=== PATIENT | female | born 1980 | race Caucasian/White ===

== ENCOUNTER 2016-10-12 20:23 | Emergency (ER) | payer MEDICAID ==
--- NOTE | 2016-10-12 20:24 | ED Physician Chart ---
Chief Complaint/HPI - Patient Information Date Seen:: 10/12/16 Time Seen:: 20:24 Chief Complaint:: chest pain History of Present Illness:: 35-year-old female, who is healthy, complains of acute, severe, 10 out of 10, aching, intermittent, occurs and becomes worse with eating, radiating to the right scapula, right sided chest pain as 2 days. Also has a second complaint of acute, constant, moderate, aching, left ear pain 3 days. Denies nausea, vomiting, diaphoresis, headache, acute vision changes, palpitations, gross blood in stool, gross hematuria, numbness or tingling of extremities, dysuria. Allergies:: Allergies Allergy/AdvReac Type Severity Reaction Status Date / Time MDX No Known Allergies - Nka Allergy Verified 09/20/15 20:32 Historian:: Patient Review:: Nurse's Note Reviewed Review of Systems - Review of Systems Other: Complete system review otherwise unremarkable except as noted in history of present illness. Past Medical History - Past Medical History Past Medical History: No significant medical hx Family History: None Social History: Non Smoker, No Alcohol, No Drug Use, Employed Surgical History: Psychiatricy History: None Medication: None Family Medical History - Family Member Mother History Unknown: Yes Ethnicity: Physical Exam - Physical Examination Other:: INITIAL VITAL SIGNS: Reviewed by me GENERAL: Alert and interactive. No acute distress HEAD: Head is normocephalic and atraumatic EYES: EOMI. PERRL. No scleral icterus. No conjunctival injection ENT: Moist mucous membranes. Left ear canal is erythematous there is purulent discharge which is obscuring a full view of the TM. Visible TM appears within normal limits. NECK: Supple. No masses. Full range of motion RESPIRATORY: No tachypnea. Clear breath sounds bilaterally. No wheezing, rales, or rhonchi CV: Regular rate and rhythm. No murmurs, rubs, or gallops ABDOMEN: Soft, non-distended, non-tender. No guarding. No rebound. No masses. EXTREMITIES: No deformity. No cyanosis. No edema. SKIN: Warm and dry. No obvious rashes. NEUROLOGIC: Alert and oriented. Face is symmetric. Speech is normal. Moves all extremities equally. Motor and sensory distally intact. Labs/Radiology/EKG Results - Lab Results Results: Lab Results 10/12/16 10/12/16 10/12/16 Range/Units 20:38 20:38 20:38 WBC 7.3 (4.8-10.8) Th/cmm RBC 4.56 (3.80-5.10) Mil/cmm Hgb 12.9 (11.7-15.5) gm/dL Hct 38.0 (35.0-45.0) % MCV 83.3 (81-100) fl MCH 28.3 (27.0-31.0) pg MCHC Differential 33.9 (28.0-36.0) pg RDW 13.1 (11.5-20.0) % Plt Count 241 (150-400) Th/cmm MPV 8.8 fl Neutrophils % 59.5 (40.0-80.0) % Lymphocytes % 32.6 (20.0-50.0) % Monocytes % 5.0 (2.0-10.0) % Eosinophils % 2.7 (0.0-5.0) % Basophils % 0.2 (0.0-2.0) % PT 9.2 L (9.5-11.5) SECONDS INR 0.89 (0.5-1.4) Sodium 137 (136-145) mEq/L Potassium 3.4 L (3.5-5.1) mEq/L Chloride 108 H (98-107) mEq/L Carbon Dioxide 23.8 (21.0-31.0) mEq/L Anion Gap 8.6 (7.0-16.0) BUN 16 (7-25) mg/dL Creatinine 0.7 (0.6-1.2) mg/dL Est GFR ( Amer) > 60.0 (>90) ml/min Est GFR (Non-Af Amer) > 60.0 ml/min BUN/Creatinine Ratio 22.9 Glucose 106 H (70-105) mg/dL Calcium 9.0 (8.6-10.3) mg/dL Total Bilirubin 0.4 (0.3-1.0) mg/dL AST 20 (13-39) U/L ALT 26 (7-52) U/L Alkaline Phosphatase 77 (34-104) U/L Troponin I (0.01-0.05) ng/mL B-Natriuretic Peptide (5.0-100.0) pg/mL Total Protein 7.5 (6.0-8.3) gm/dL Albumin 4.0 (3.7-5.3) gm/dL Globulin 3.5 gm/dL Albumin/Globulin Ratio 1.1 (1.0-1.8) Serum , Qual (NEGATIVE) 10/12/16 10/12/16 Range/Units 20:38 20:38 WBC (4.8-10.8) Th/cmm RBC (3.80-5.10) Mil/cmm Hgb (11.7-15.5) gm/dL Hct (35.0-45.0) % MCV (81-100) fl MCH (27.0-31.0) pg MCHC Differential (28.0-36.0) pg RDW (11.5-20.0) % Plt Count (150-400) Th/cmm MPV fl Neutrophils % (40.0-80.0) % Lymphocytes % (20.0-50.0) % Monocytes % (2.0-10.0) % Eosinophils % (0.0-5.0) % Basophils % (0.0-2.0) % PT (9.5-11.5) SECONDS INR (0.5-1.4) Sodium (136-145) mEq/L Potassium (3.5-5.1) mEq/L Chloride (98-107) mEq/L Carbon Dioxide (21.0-31.0) mEq/L Anion Gap (7.0-16.0) BUN (7-25) mg/dL Creatinine (0.6-1.2) mg/dL Est GFR ( Amer) (>90) ml/min Est GFR (Non-Af Amer) ml/min BUN/Creatinine Ratio Glucose (70-105) mg/dL Calcium (8.6-10.3) mg/dL Total Bilirubin (0.3-1.0) mg/dL AST (13-39) U/L ALT (7-52) U/L Alkaline Phosphatase (34-104) U/L Troponin I 0.01 (0.01-0.05) ng/mL B-Natriuretic Peptide 12.6 (5.0-100.0) pg/mL Total Protein (6.0-8.3) gm/dL Albumin (3.7-5.3) gm/dL Globulin gm/dL Albumin/Globulin Ratio (1.0-1.8) Serum , Qual NEGATIVE (NEGATIVE) - Radiology Results Results: Single AP VIEW Portable Chest X-ray was interpreted independently and contemporaneously by Rafal Valdez MD: No cardiomegaly Normal mediastinum No lung infiltrates No pneumothorax No soft tissue or bony abnormalities - EKG Interpretations Comments:: 12-lead EKG Interpretation by Rafal Valdez MD: Normal Sinus Rhythm with ventricular rate of 61 beats per minute Normal axis Normal intervals No acute ST or T wave changes. No obvious STEMI ED Septic Shock - . Is Septic Shock (SBP<90, OR Lactate>4 mmol\L) present?: No Reassessment (Disposition) - Reassessment Reassessment:: Procedure female otherwise healthy, sensory with right sided chest pain that was worse after eating. Radiated to her scapula. Likely biliary colic. However no transaminitis or obstructive pattern on the labs. No Liao's sign on exam. Pepcid 20 days prescription. Also has left ear pain. She says she was swimming about 45 days ago. Has otitis media on exam on the left. We'll prescribe ciprofloxacin/hydrocortisone otic drops. Recommend follow-up PCP 1-2 days. Return precautions given. Patient says she understands and agrees the plan. Blood pressure was noted to be elevated over 120/80. There were no signs of hypertension. Discussed the findings with the patient and recommended that the patient follow up with the primary care physician regarding the elevated blood pressure. Reassessment Condition:: Improved - Diagnosis Diagnosis:: Acute left ear pain due to acute left otitis externa Acute right sided chest pain due to possible biliary colic Elevated blood pressure without the diagnosis of hypertension - Aftercare/Follow up Instructions Aftercare/Follow-Up Instructions:: Counseled pt regarding lab results/diagnosis & need follow up, Refer to Discharge Instructions Medication Prescribed:: Pepcid Ciprofloxacin/hydrocortisone otic solution - Patient Disposition Discharge/Transfer:: Home Time:: 21:43 Condition at Disposition:: Improved ED Discharge Plan - Patient Disposition Admit/Discharge/Transfer: PT DISCHARGED HOME Condition at Disposition: Improved Prescriptions: Ciprofloxacin/Hydrocortisone [Cipro Hc Otic Suspension] 10 ml OT Q12HR 7 Days Famotidine [Pepcid] 40 mg PO DAILY 20 Days Instructions: Otitis Externa, [id number], Chest Pain Observation Additional Instructions: FOLLOW UP WITH YOUR DOCTOR IN 2- 3 DAYS AND TO COME BACK TO ER IF SYMPTOMS WORSEN. TAKE YOUR MEDICATIONS PRESCRIBED
[2016-10-12 20:48] LABS: % BASOPHILS 0.2 % (0.0-2.0); % EOSINOPHILS 2.7 % (0.0-5.0); % LYMPHOCYTES 32.6 % (20.0-50.0); % NEUTROPHILS 59.5 % (40.0-80.0); HEMOGLOBIN 12.9 gm/dL (11.7-15.5); MEAN CELL VOLUME 83.3 fl (81-100); MEAN CORPUSCULAR HEMOGLOBIN 28.3 pg (27.0-31.0); MEAN CORPUSCULAR HGB CONC 33.9 pg (28.0-36.0); MEAN PLATELET VOLUME 8.8 fl; NEUTROPHILE ABSOLUTE 4.3 Th/cmm (1.8-8.0); PLATELET COUNT 241 Th/cmm (150-400); RED BLOOD COUNT 4.56 Mil/cmm (3.80-5.10); RED CELL DISTRIBUTION WIDTH 13.1 % (11.5-20.0); WHITE BLOOD COUNT 7.3 Th/cmm (4.8-10.8)
[2016-10-12 21:00] LABS: INR 0.89 (0.5-1.4); PROTHROMBIN TIME (TEST) 9.2 SECONDS (9.5-11.5)
[2016-10-12 21:03] LABS: ALB/GLOB RATIO 1.1 (1.0-1.8); ALKALINE PHOSPHATASE 77 U/L (34-104); ANION GAP 8.6 (7.0-16.0); BILIRUBIN,TOTAL 0.4 mg/dL (0.3-1.0); BUN - UREA NITROGEN 16 mg/dL (7-25); BUN/CREATININE RATIO 22.9; CARBON DIOXIDE 23.8 mEq/L (21.0-31.0); CHLORIDE 108 mEq/L (98-107); CREATININE - SERUM 0.7 mg/dL (0.6-1.2); GLUCOSE 106 mg/dL (70-105); POTASSIUM SERUM 3.4 mEq/L (3.5-5.1); SGOT 20 U/L (13-39); SGPT/ALT 26 U/L (7-52); SODIUM SERUM 137 mEq/L (136-145)
[2016-10-12 21:04] LABS: TROP I 0.01 ng/mL (0.01-0.05)
[2016-10-12 21:08] LABS: BNP 12.6 pg/mL (5.0-100.0)
--- NOTE | 2016-10-13 11:47 | Diagnostic Imaging Report ---
Portable chest x-ray History: Pain Allowing for portable technique the heart size is normal. No focal pulmonary parenchymal processes. No hilar or mediastinal abnormalities. Impression: No acute abnormalities.
== END 2016-10-12 22:00 | disposition home or self-care (01) ==
LOC: ER 20:23
DX: H60.92 Unspecified otitis externa, left ear (principal); R07.89 Other chest pain; R03.0 Elevated blood-pressure reading, without diagnosis of hypertension
CPT/HCPCS: 99285; 96372; 93005; 71010; 84484; 83880; 36415; 85025; 85610; 84703; 80053; J1885

== ENCOUNTER 2018-04-06 17:04 | Inpatient (IN) | payer MEDICAID ==
[2018-04-06] MEDS ORDERED: Sodium Chloride 0.9% 1,000 ML IV ONE (17:57)
--- NOTE | 2018-04-06 18:03 | ED Physician Chart ---
ED Chief Complaint/HPI - Patient Information Date Seen:: 04/06/18 Time Seen:: 17:00 Chief Complaint:: Abdominal Pain History of Present Illness:: onset x 12 hours of intermittent, diffuse, crampy abdominal pain; pt denies trauma, LOC, ALOC, AMS, H/As, S/T, neck pain, cough, C/P, SOB, A/N/V/D/C, fever , chills, VB, VD, bleeding, or urinary s/s Allergies:: Allergies Allergy/AdvReac Type Severity Reaction Status Date / Time No Known Allergies Allergy Verified 10/12/16 20:29 Historian:: Patient, Family Member Review:: Nurse's Note Reviewed ED Review of Systems - Review of Systems General/Constitutional: No fever, No chills, No weight loss, No weakness, No diaphoresis, No edema, No loss of appetite Skin: No skin lesions, No rash, No bruising Head: No headache, No light-headedness Eyes: No loss of vision, No pain, No diplopia ENT: No earache, No nasal drainage, No sore throat, No tinnitus Neck: No neck pain, No swelling, No thyromegaly, No stiffness, No mass noted Cardio Vascular: No chest pain, No palpitations, No PND, No orthopnea, No edema Pulmonary: No SOB, No cough, No sputum, No wheezing GI: Nausea, Vomiting, Diarrhea, Pain, No melena, No hematochezia, No constipation, No hematemesis G/U: No dysuria, No frequency, No hematuria [employer]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, No abnormal vaginal bleed, No contraction Musculoskeletal: No bone or joint pain, No back pain, No muscle pain Endocrine: No polyuria, No polydipsia Psychiatric: No prior psych history, No depression, No anxiety, No suicidal ideation, No homicidal ideation, No auditory hallucination, No visual hallucination Hematopoietic: No bruising, No lymphadenopathy Allergic/Immuno: No urticaria, No angioedema Neurological: No syncope, No focal symptoms, No weakness, No paresthesia, No headache, No seizure, No dizziness, No confusion, No vertigo ED Past Medical History - Past Medical History Obtainable: Yes Past Medical History: No significant medical hx Family History: None Social History: Non Smoker, No Alcohol, No Drug Use, Surgical History: None Psychiatricy History: None Medication: Reviewed Family Medical History - Family Member Mother History Unknown: Yes Ethnicity: ED Physical Exam - Physical Examination General/Constitutional: Awake, Well-developed, well-nourished, Alert, No distress, GCS 15, Non-toxic appearing, Ambulatory Head: Atraumatic Eyes: Lids, conjuctiva normal, PERRL, EOMI Skin: Nl inspection, No rash, No skin lesions, No ecchymosis, Well hydrated, No lymphadenopathy ENMT: External ears, nose nl, TM canals nl, Nasal exam nl, Lips, teeth, gums nl , Oropharynx nl, Tonsils nl Neck: Nontender, Full ROM w/o pain, No JVD, No nuchal rigidity, No bruit, No mass, No stridor Respiratory: Nl effort/Exclusion, Clear to Auscultation, No Wheeze/Rhonchi/Rales Cardio Vascular: RRR, No murmur, gallop, rubs, NL S1 S2, Carotid/Femoral/Distal pulses equal bilaterally GI: No organomegaly, No hernia, Normal BS's, Nondistended, No mass/bruits, No McBurney tenderness, Rectum exam nl Other GI comments:: + RLQ Tenderness with rebound and guarding : No CVA tenderness Extremities: No tenderness or effusion, Full ROM, normal strength in all extremities, No edema, Normal digits & nails Neuro/Psych: Alert/oriented, DTR's symmetric, Normal sensory exam, Normal motor strength, Judgement/insight normal, Mood normal, Normal gait, No focal deficits Misc: Normal back, No paraspinal tenderness ED Labs/Radiology/EKG Results - Lab Results Comments:: Reviewed - Radiology Results Comments:: NAD - EKG Interpretations EKG Time:: 19:00 Rate & Rhythm: 74; NSR Comments:: non-specific st-t changes ED Septic Shock - . Is Septic Shock (SBP<90, OR Lactate>4 mmol\L) present?: No ED Reassessment (Disposition) - Reassessment Reassessment Condition:: Improved - Diagnosis Diagnosis:: Abdominal Pain; UTI - Aftercare/Follow up Instructions Aftercare/Follow-Up Instructions:: Counseled pt regarding lab results/diagnosis & need follow up, Counseled pt & family regarding lab results/diagnosis & need follow up - Patient Disposition Discharge/Transfer:: Acute Care w/in this hosp Accepting Physician:: Dr. Pelaez Time Called:: 2199 Time Responded:: 22:00 Admitted to:: Telemetry Spoke to:: Dr. Pelaez Admitting Medical Physician:: Dr. Pelaez Condition at Disposition:: Stable, Improved
[2018-04-06 18:35] LABS: % BASOPHILS 0.4 % (0.0-2.0); % EOSINOPHILS 4.1 % (0.0-5.0); % LYMPHOCYTES 29.4 % (20.0-50.0); % MONOCYTES 2.9 % (2.0-10.0); % NEUTROPHILS 63.2 % (40.0-80.0); EOSINOPHILE ABSOLUTE 0.4 Th/cmm (0.1-0.4); HEMATOCRIT 41.9 % (41.0-60); HEMOGLOBIN 14.1 gm/dL (12-16); LYMPHOCYTE ABSOLUTE 2.6 Th/cmm (1.5-3.0); MEAN CELL VOLUME 84.5 fl (81-100); MEAN CORPUSCULAR HEMOGLOBIN 28.3 pg (27.0-31.0); MEAN CORPUSCULAR HGB CONC 33.5 pg (28.0-36.0); MEAN PLATELET VOLUME 8.6 fl; MONOCYTE ABSOLUTE 0.3 Th/cmm (0.3-1.0); NEUTROPHILE ABSOLUTE 5.5 Th/cmm (1.8-8.0); PLATELET COUNT 307 Th/cmm (150-400); RED BLOOD COUNT 4.96 Mil/cmm (3.80-5.10); RED CELL DISTRIBUTION WIDTH 13.3 % (11.5-20.0); WHITE BLOOD COUNT 8.8 Th/cmm (4.8-10.8)
[2018-04-06 18:46] LABS: INR 0.92 (0.5-1.4); PROTHROMBIN TIME (TEST) 9.6 SECONDS (9.5-11.5)
[2018-04-06 18:50] LABS: ALB/GLOB RATIO 1.3 (1.0-1.8); ALBUMIN 4.2 gm/dL (3.7-5.3); ALKALINE PHOSPHATASE 91 U/L (34-104); BILIRUBIN,TOTAL 0.5 mg/dL (0.3-1.0); BUN - UREA NITROGEN 12 mg/dL (7-25); CALCIUM SERUM 9.6 mg/dL (8.6-10.3); CARBON DIOXIDE 23.7 mEq/L (21.0-31.0); CHLORIDE 105 mEq/L (98-107); CHOLESTEROL 178 mg/dL (<200); CREATININE - SERUM 0.5 mg/dL (0.6-1.2); CREATININE KINASE 93 U/L (30-223); GFR AFRICAN-AMERICAN > 60.0 ml/min (>90); GFR NON AFRICAN-AMERICAN > 60.0 ml/min; GLUCOSE 106 mg/dL (70-105); HDL -HIGH DENSITY LIPOPROTEIN 30 mg/dL (23-92); POTASSIUM SERUM 3.7 mEq/L (3.5-5.1); SGOT 79 U/L (13-39); SGPT/ALT 105 U/L (7-52); SODIUM SERUM 138 mEq/L (136-145); TOTAL PROTEIN,SERUM 7.5 gm/dL (6.0-8.3); TRIGLYCERIDES 219 mg/dL (<150)
[2018-04-06 18:53] LABS: AMYLASE SERUM 45 U/L (29-103); LIPASE 44 U/L (11-82)
[2018-04-06 18:53] LABS: URINE SOURCE RANDOM
[2018-04-06 18:58] LABS: URINE BILIRUBIN NEGATIVE (NEGATIVE); URINE BLOOD NEGATIVE (NEGATIVE); URINE GLUCOSE (UA) NEGATIVE (NEGATIVE); URINE KETONE NEGATIVE (NEGATIVE); URINE LEUKOCYTE ESTERASE NEGATIVE (NEGATIVE); URINE MICROSCOPIC INDICATED? YES; URINE NITRATE NEGATIVE (NEGATIVE); URINE PROTEIN TRACE mg/dL (NEGATIVE); URINE UROBILINOGEN 0.2 E.U./dL (0.2 - 1.0)
[2018-04-06 18:59] LABS: URINE CLARITY CLEAR (CLEAR); URINE COLOR YELLOW
[2018-04-06 19:01] LABS: URINE BACTERIA 1+ /hpf (NONE SEEN); URINE EPITHELIAL CELLS FEW /lpf (FEW); URINE RBC 0-2 /hpf (0-5)
[2018-04-06] MEDS ORDERED: cefTRIAXone 1 GM in Sodium Chloride 0.9% 50 ML IV ONE (20:29)
[2018-04-07] MEDS: D5-0.45NS 1,000 ML IV SCH ×3 (00:15→22:30)
[2018-04-07] MEDS: Morphine Sulfate 2 mg/mL 1mL Syr IV PRN ×3 (00:15→12:07)
[2018-04-07] MEDS ORDERED: Piperacillin Sodium/Tazobact 3.375 gm Vial IV ONE ×2 (00:19→05:27)
[2018-04-07 01:25] VITALS: BP 124/61
[2018-04-07] MEDS ORDERED: Influenza Vaccine (5 yr & older) 0.5 ml Syr IM ONE (01:44)
--- NOTE | 2018-04-07 09:26 | General Progress Note ---
Subjective - Review of Systems Service Date: 04/07/18 Events since last encounter: consult dictated minimal pain RLQ US of pelvis and repeat labs ordered Objective - Results Result Diagrams: 04/06/18 18:20 04/06/18 18:20 Recent Labs: Laboratory Last Values WBC 8.8 Th/cmm (4.8-10.8) 04/06/18 18:20 RBC 4.96 Mil/cmm (3.80-5.10) 04/06/18 18:20 Hgb 14.1 gm/dL (12-16) 04/06/18 18:20 Hct 41.9 % (41.0-60) 04/06/18 18:20 MCV 84.5 fl (81-100) 04/06/18 18:20 MCH 28.3 pg (27.0-31.0) 04/06/18 18:20 MCHC Differential 33.5 pg (28.0-36.0) 04/06/18 18:20 RDW 13.3 % (11.5-20.0) 04/06/18 18:20 Plt Count 307 Th/cmm (150-400) 04/06/18 18:20 MPV 8.6 fl 04/06/18 18:20 Neutrophils % 63.2 % (40.0-80.0) 04/06/18 18:20 Lymphocytes % 29.4 % (20.0-50.0) 04/06/18 18:20 Monocytes % 2.9 % (2.0-10.0) 04/06/18 18:20 Eosinophils % 4.1 % (0.0-5.0) 04/06/18 18:20 Basophils % 0.4 % (0.0-2.0) 04/06/18 18:20 PT 9.6 SECONDS (9.5-11.5) 04/06/18 18:20 INR 0.92 (0.5-1.4) 04/06/18 18:20 Sodium 138 mEq/L (136-145) 04/06/18 18:20 Potassium 3.7 mEq/L (3.5-5.1) 04/06/18 18:20 Chloride 105 mEq/L (98-107) 04/06/18 18:20 Carbon Dioxide 23.7 mEq/L (21.0-31.0) 04/06/18 18:20 Anion Gap 13.0 (7.0-16.0) 04/06/18 18:20 BUN 12 mg/dL (7-25) 04/06/18 18:20 Creatinine 0.5 mg/dL (0.6-1.2) L 04/06/18 18:20 Est GFR ( Amer) > 60.0 ml/min (>90) 04/06/18 18:20 Est GFR (Non-Af Amer) > 60.0 ml/min 04/06/18 18:20 BUN/Creatinine Ratio 24.0 04/06/18 18:20 Glucose 106 mg/dL (70-105) H 04/06/18 18:20 Calcium 9.6 mg/dL (8.6-10.3) 04/06/18 18:20 Total Bilirubin 0.5 mg/dL (0.3-1.0) 04/06/18 18:20 AST 79 U/L (13-39) H 04/06/18 18:20 ALT 105 U/L (7-52) H 04/06/18 18:20 Alkaline Phosphatase 91 U/L (34-104) 04/06/18 18:20 Creatine Kinase 93 U/L (30-223) 04/06/18 18:20 Troponin I < 0.01 ng/mL (0.01-0.05) L 04/06/18 18:20 B-Natriuretic Peptide < 5.0 pg/mL (5.0-100.0) L 04/06/18 18:20 Total Protein 7.5 gm/dL (6.0-8.3) 04/06/18 18:20 Albumin 4.2 gm/dL (3.7-5.3) 04/06/18 18:20 Globulin 3.3 gm/dL 04/06/18 18:20 Albumin/Globulin Ratio 1.3 (1.0-1.8) 04/06/18 18:20 Triglycerides 219 mg/dL (<150) H 04/06/18 18:20 Cholesterol 178 mg/dL (<200) 04/06/18 18:20 LDL Cholesterol Direct 132 mg/dL (75-193) 04/06/18 18:20 HDL Cholesterol 30 mg/dL (23-92) 04/06/18 18:20 Amylase 45 U/L (29-103) 04/06/18 18:20 Lipase 44 U/L (11-82) 04/06/18 18:20 Serum , Qual NEGATIVE (NEGATIVE) 04/06/18 18:20 Urine Source RANDOM 04/06/18 17:53 Urine Color YELLOW 04/06/18 17:53 Urine Clarity CLEAR (CLEAR) 04/06/18 17:53 Urine pH 7.0 (4.6 - 8.0) 04/06/18 17:53 Ur Specific [place] 1.020 (1.005-1.030) 04/06/18 17:53 Urine Protein TRACE mg/dL (NEGATIVE) 04/06/18 17:53 Urine Glucose (UA) NEGATIVE mg/dL (NEGATIVE) 04/06/18 17:53 Urine Ketones NEGATIVE mg/dL (NEGATIVE) 04/06/18 17:53 Urine Blood NEGATIVE (NEGATIVE) 04/06/18 17:53 Urine Nitrate NEGATIVE (NEGATIVE) 04/06/18 17:53 Urine Bilirubin NEGATIVE (NEGATIVE) 04/06/18 17:53 Urine Urobilinogen 0.2 E.U./dL (0.2 - 1.0) 04/06/18 17:53 Ur Leukocyte Esterase NEGATIVE (NEGATIVE) 04/06/18 17:53 Urine RBC 0-2 /hpf (0-5) 04/06/18 17:53 Urine WBC 2-5 /hpf (0-5) 04/06/18 17:53 Ur Epithelial Cells FEW /lpf (FEW) 04/06/18 17:53 Urine Bacteria 1+ /hpf (NONE SEEN) H 04/06/18 17:53 - Physical Exam Vitals and I&O: Vital Signs Temp 97.3 F 04/07/18 08:29 Pulse 64 04/07/18 08:29 Resp 18 04/07/18 08:29 BP 111/56 04/07/18 08:29 Pulse Ox 96 04/07/18 08:29 Intake & Output 04/06/18 04/07/18 04/07/18 18:59 06:59 18:59 Intake Total 50 Balance 50 Weight (lbs) 99.79 kg 107.365 kg Intake: Intake, IV Amount 50 Piperacillin Sodium/ 50 Tazobact 3.375 gm In Sodium Chloride 0.9% 50 ml @ 100 mls/hr IV Q6HR [facility] Rx#:[id number] Oral 0 Other: # Voids 1 # Bowel Movements 0 Weight Source Patient stated Bedscale Active Medications: Current Medications Dextrose/Sodium Chloride (D5-0.45ns) 1,000 mls @ 100 mls/hr IV .Q10H [facility] Stop: 06/05/18 22:37 Last Admin: 04/07/18 00:15 Dose: 100 mls/hr Piperacillin Sod/Tazobactam (Sod 3.375 gm/ Sodium Chloride) 50 mls @ 100 mls/ hr IV Q6HR [facility] Stop: 06/06/18 00:00 Last Admin: 04/07/18 05:57 Dose: 100 mls/hr Morphine Sulfate (Morphine) 2 mg IV Q4HR PRN PRN Reason: Abdominal Pain Stop: 06/05/18 23:57 Last Admin: 04/07/18 06:02 Dose: 2 mg - Procedures Procedures: Procedures Procedure Code Date BILAT TUBAL DIVISION NEC 66.32 09/22/06 DELIVERY 59534 03/25/04 DELIVERY ONLY 34582 09/22/06 DX PROC FETUS/AMNION NEC 75.35 02/17/04 DX ULTRASOUND-GRAV UTER 88.78 03/24/04 MONITORING NOS 75.34 09/13/06 NON-STRESS TEST 52593 09/13/06 LIGATE OVIDUCT(S) ADD-ON 58420 09/22/06 LOW CERVICAL 74.1 09/22/06 MATERNITY CARE PROCEDURE 68341 03/21/04 MEDICAL INDUCTION LABOR 73.4 03/25/04 OB US LIMITED FETUS(S) 53870 03/24/04
--- NOTE | 2018-04-07 09:39 | Diagnostic Imaging Report ---
CT abdomen and pelvis without intravenous contrast Indication: Abdominal pain Comparison: None, Technique: Axial images were obtained from the lung bases to the bilateral proximal femurs without IV contrast. Coronal reconstructions were made. total DLP: 751, CTDI14.3 FINDINGS: Hypoventilatory and atelectatic changes of the lung bases are noted. There is also view nodular densities of the right lower lobe 5 mm (image 10, series 5). Assessment of the solid organs is limited due to lack of IV contrast. Small hiatal hernia is noted. There is fatty infiltration of the liver. No focal hepatic, splenic, pancreatic, or adrenal lesions. No evidence of hydronephrosis or nephrolithiasis. Moderate amount of stool is noted within the colon. Fluid-filled appendix is noted without evidence of surrounding inflammatory changes. No evidence of free abdominal fluid or free the osseous structures demonstrate no acute abnormalities. IMPRESSION: Fluid-filled appendix. No evidence of surrounding inflammatory changes to suggest acute process of the spine. No evidence of small bowel obstruction. Moderate stool throughout the colon. Few small right basal nodules measuring up to 5 mm. Findings are nonspecific and may be due to infectious or inflammatory process. Correlation with old exams would be helpful for comparison. Short-term Follow-up surveillance CT examination in 6 months is recommended/monitoring.
--- NOTE | 2018-04-07 09:43 | Consultation ---
DATE OF CONSULTATION: 04/07/2018 REFERRING PHYSICIAN: Dr. Pelaez. REASON FOR CONSULTATION: Abdominal pain. Thank you for referring this patient to me. HISTORY OF PRESENT ILLNESS: This is a 37-year-old female who went to the Emergency Room because of abdominal pain for one day. Pain is mostly in the right lower quadrant. Denied any fever or chills or diarrhea, did have nausea, but no vomiting. LABORATORY STUDIES: Showed WBC is normal, rest of the CBC also. The chemistry: Slight elevation of AST and ALT. Triglycerides high at 219. She underwent a CT scan of the abdomen, which showed a fluid-filled appendix. No evidence of appendicitis; however. Past history is unremarkable except that she had two section. Otherwise, she does not take any medication on a regular basis. PHYSICAL EXAMINATION: The patient is obese. She is tender in the right lower quadrant on pushing in, but not any worse on sudden release of pressure. IMPRESSION: Possible early appendicitis. PLAN: We will order ultrasound of the pelvis and repeat lab test. test is negative. JOB# [id number]
[2018-04-07 11:19] LABS: % BASOPHILS 0.3 % (0.0-2.0); % MONOCYTES 4.2 % (2.0-10.0); % NEUTROPHILS 52.5 % (40.0-80.0); EOSINOPHILE ABSOLUTE 0.3 Th/cmm (0.1-0.4); HEMATOCRIT 39.9 % (41.0-60); HEMOGLOBIN 13.6 gm/dL (12-16); LYMPHOCYTE ABSOLUTE 3.1 Th/cmm (1.5-3.0); MEAN CELL VOLUME 84.1 fl (81-100); MEAN CORPUSCULAR HEMOGLOBIN 28.6 pg (27.0-31.0); MEAN CORPUSCULAR HGB CONC 34.1 pg (28.0-36.0); MEAN PLATELET VOLUME 8.3 fl; MONOCYTE ABSOLUTE 0.3 Th/cmm (0.3-1.0); NEUTROPHILE ABSOLUTE 4.3 Th/cmm (1.8-8.0); PLATELET COUNT 300 Th/cmm (150-400); RED BLOOD COUNT 4.75 Mil/cmm (3.80-5.10); RED CELL DISTRIBUTION WIDTH 13.6 % (11.5-20.0)
--- NOTE | 2018-04-07 11:19 | History & Physical ---
ADMIT DATE: 04/06/2018 MEDICAL H AND P PATIENT'S IDENTIFICATION: A 37-year-old female. CHIEF COMPLAINT: Right-sided abdominal pain. HISTORY OF PRESENT ILLNESS: A 37-year-old [place] female who speaks Ukrainian only, presented to Emergency Room for acute onset of right lower quadrant abdominal pain, which started on its own and pain was severe. She did take some ibuprofen with no improvement. She did have associated nausea and vomiting. The patient presented to Emergency Room. The patient was seen by Emergency Room MD, noted to have fluid filled appendix on CT scan of the abdomen and pelvis. The patient was advised to be admitted in the hospital for further treatment. PAST MEDICAL HISTORY: Negative. MEDICATIONS AT HOME: None. ALLERGIES: None. SOCIAL HISTORY: She is unemployed, lives with the family. She has no history of smoking cigarette, alcohol, or drug use. FAMILY MEDICAL HISTORY: Negative for diabetes, hypertension, kidney disease. MENSTRUAL AND GYNECOLOGIC HISTORY: She has two children. Her periods are regular. She denies any vaginal bleeding or vaginal discharge. REVIEW OF SYSTEMS: The patient denies any headache, blurred vision, double vision, dysphagia, odynophagia, runny nose, stuffy nose, fever, chills, cough, chest pain, shortness of breath, palpitation or dizziness. No history of any hematemesis. No history of any hematochezia. No history of any melena. No history of any hematuria. Denies any dysuria or polyuria. PHYSICAL EXAMINATION: GENERAL: The patient is alert, awake, oriented, lying in the bed with mild distress. VITAL SIGNS: Temperature 96.7, pulse 62, respiratory rate 18, blood pressure 116/58. SKIN: Warm to touch. HEENT: Normocephalic, atraumatic. Extraocular muscles intact. Tongue was pink and coated. Poor dentition noted. No oral lesion, no exudate. No sinus tenderness. NECK: Supple, no JVD. No hepatojugular reflex. No lymphadenopathy, thyromegaly or carotid bruit. HEART: Both heart sounds are regular. No S3, no S4, no murmur. CHEST AND LUNGS: Equal in expansion. No expiratory wheezing. ABDOMEN: Soft. Mild right lower quadrant tenderness noted, but no guarding, no rigidity. Bowel sounds are present. No pelvic mass. EXTREMITIES: No edema, no cyanosis or clubbing. Pulses are +2. No calf tenderness. NEUROLOGIC: Nonfocal. AVAILABLE DIAGNOSTIC DATA: AST and ALT 79 and 105, glucose of 106, creatinine 0.5. CBC within normal limit. Electrolytes are normal. Amylase and lipase are normal. Urinalysis is negative. CLINICAL IMPRESSION: 1. Acute onset of right lower quadrant pain. CT scan revealed fluid filled appendix and has a slightly elevated AST, ALT with normal bilirubin. Clinical picture seems more like appendicitis rather than any other etiology. 2. Elevated liver function tests, mostly from fatty liver. 3. Obesity. PLAN: 1. Admit this patient to Med/Surg floor. 2. NPO. 3. IV antibiotic. 4. Symptoms management. 5. GI and General Surgery consultation. 6. Abdominal ultrasound. 7. Follow lab. 8. Follow consult recommendation. 9. Care plan reviewed and discussed with staff. JOB# [id number]
[2018-04-07 11:35] LABS: ALB/GLOB RATIO 1.2 (1.0-1.8); ALBUMIN 3.8 gm/dL (3.7-5.3); ALKALINE PHOSPHATASE 98 U/L (34-104); ANION GAP 12.2 (7.0-16.0); BILIRUBIN,TOTAL 0.7 mg/dL (0.3-1.0); BUN - UREA NITROGEN 14 mg/dL (7-25); CARBON DIOXIDE 22.3 mEq/L (21.0-31.0); CHLORIDE 104 mEq/L (98-107); CREATININE - SERUM 0.6 mg/dL (0.6-1.2); GFR AFRICAN-AMERICAN > 60.0 ml/min (>90); GFR NON AFRICAN-AMERICAN > 60.0 ml/min; GLUCOSE 126 mg/dL (70-105); LIPASE 36 U/L (11-82); POTASSIUM SERUM 3.5 mEq/L (3.5-5.1); SGOT 74 U/L (13-39); SGPT/ALT 100 U/L (7-52); SODIUM SERUM 135 mEq/L (136-145)
--- NOTE | 2018-04-07 15:30 | Consultation ---
DATE OF CONSULTATION: 04/07/2018 INPATIENT GASTROINTESTINAL CONSULTATION CONSULTING PHYSICIAN: Dr. Pelaez. REASON FOR CONSULTATION: Right-sided abdominal pain. HISTORY OF PRESENT ILLNESS: The patient is a 37-year-old female with no chronic medical illness, who comes into the hospital with 12 hours of sudden onset right lower quadrant abdominal pain. The patient reports that her pain began yesterday morning and came on all of a sudden, it was mostly in the right lower quadrant and constant in nature. The pain only worsened over the course of the day and that she sought care in the ER, evening. She denies any vomiting, denies any bowel movements or blood in her stool. In the ER, she did have an evaluation with CT scan and a preliminary read does not show classic signs of appendicitis and does not show any evidence of bowel obstruction at the current time, although the final read is not yet reported. Additionally, she does not have a leukocytosis on her labs. She is admitted to the hospital for further evaluation. At the current time, her pain is better, although this may be because she just received morphine. PAST MEDICAL HISTORY: No chronic medical illnesses. PAST SURGICAL HISTORY: . FAMILY HISTORY: Noncontributory. SOCIAL HISTORY: The patient does not smoke, drink or use illicit drugs. ALLERGIES: No known drug allergies. REVIEW OF SYSTEMS: A 12-point review of systems was performed with the patient and is negative other than the pertinent positives mentioned in the history of present illness. CURRENT MEDICATIONS: Include Zosyn and morphine. PHYSICAL EXAMINATION: VITAL SIGNS: Blood pressure is 116/58, pulse 62 beats per minute, temperature 96.7, oxygenation 97%. GENERAL: The patient is lying at 30 degrees in bed. She is alert and oriented x 3, in no apparent distress. HEAD, EARS, EYES, NOSE AND THROAT: Normocephalic, atraumatic appearing head. Pupils are equal and reactive to light. Extraocular muscles appear to be intact. Moist mucous membranes are noted. NECK: Supple. No JVD or thyromegaly or lymphadenopathy. CHEST: Clear to auscultation bilaterally. CARDIOVASCULAR: S1 and S2 are present, regular rate and rhythm. ABDOMEN: Obese. There is tenderness in the right lower quadrant to deep palpation, although no guarding or rebound. No obvious fluid distention. EXTREMITIES: Nonpitting edema bilaterally. Pulses are not present. SKIN: There is no obvious jaundice. LABORATORY DATA: White blood cell count 8.8, hemoglobin 14.1, platelet count is 307. INR is 0.9. Sodium 138, creatinine 0.5. AST is 79, ALT 105, total bilirubin is 0.5. BNP is 5. Triglyceride level 219. IMAGING: Preliminary CT read does not show evidence of appendicitis. IMPRESSION: This is a 37-year-old female with sudden onset right lower quadrant pain yesterday, which only intensified prompting her trip to the ER. Right lower quadrant pain, constant in nature. DISCUSSION: Differential diagnosis here does include appendicitis, but also include such things as colitis, infectious gastroenteritis, cholelithiasis or cholecystitis or even common bile duct stones. We will await the final CT read to make sure that we are not missing an appendicitis here, but I will also order an ultrasound to evaluate the gallbladder and biliary system for any evidence of biliary pathology or cholecystitis. She is on antibiotics at this point, which seems appropriate given the severity of her pain. A surgical consult is also pending. RECOMMENDATIONS: 1. Await the final read of the CT to rule out any appendicitis or colitis. 2. Ordered abdominal ultrasound to evaluate gallbladder and biliary system. 3. Trend the LFTs, which are mildly elevated at this point which may reflect fatty liver disease or biliary or cholecystitis. 4. If no operation is planned after she sees a surgeon, we would suggest starting a clear liquid diet for the time being. I will continue to follow. Thank you for allowing me to participate in her care. Please call with any further questions. JOB# [id number]
[2018-04-08 04:43] LABS: % BASOPHILS 0.8 % (0.0-2.0); % EOSINOPHILS 3.7 % (0.0-5.0); % LYMPHOCYTES 28.4 % (20.0-50.0); % MONOCYTES 3.4 % (2.0-10.0); % NEUTROPHILS 63.7 % (40.0-80.0); BASOPHILE ABSOLUTE 0.1 Th/cumm (0-0.2); EOSINOPHILE ABSOLUTE 0.3 Th/cmm (0.1-0.4); HEMOGLOBIN 12.6 gm/dL (12-16); LYMPHOCYTE ABSOLUTE 2.3 Th/cmm (1.5-3.0); MEAN CELL VOLUME 84.8 fl (81-100); MEAN CORPUSCULAR HEMOGLOBIN 28.9 pg (27.0-31.0); MEAN CORPUSCULAR HGB CONC 34.1 pg (28.0-36.0); MEAN PLATELET VOLUME 8.4 fl; MONOCYTE ABSOLUTE 0.3 Th/cmm (0.3-1.0); PLATELET COUNT 285 Th/cmm (150-400); RED BLOOD COUNT 4.36 Mil/cmm (3.80-5.10); RED CELL DISTRIBUTION WIDTH 13.3 % (11.5-20.0)
[2018-04-08 05:22] LABS: ALB/GLOB RATIO 1.2 (1.0-1.8); ALBUMIN 3.6 gm/dL (3.7-5.3); ALKALINE PHOSPHATASE 85 U/L (34-104); ANION GAP 11.8 (7.0-16.0); BILIRUBIN,TOTAL 0.8 mg/dL (0.3-1.0); BUN - UREA NITROGEN 10 mg/dL (7-25); CALCIUM SERUM 8.7 mg/dL (8.6-10.3); CARBON DIOXIDE 24.7 mEq/L (21.0-31.0); CHLORIDE 105 mEq/L (98-107); CREATININE - SERUM 0.6 mg/dL (0.6-1.2); GFR AFRICAN-AMERICAN > 60.0 ml/min (>90); GFR NON AFRICAN-AMERICAN > 60.0 ml/min; GLUCOSE 123 mg/dL (70-105); POTASSIUM SERUM 3.5 mEq/L (3.5-5.1); SGOT 53 U/L (13-39); SGPT/ALT 83 U/L (7-52); SODIUM SERUM 138 mEq/L (136-145); TOTAL PROTEIN,SERUM 6.5 gm/dL (6.0-8.3)
[2018-04-08] MEDS: Morphine Sulfate 2 mg/mL 1mL Syr IV PRN (06:03)
--- NOTE | 2018-04-08 08:29 | GI Progress Note ---
Subjective - Review of Systems Service Date: 04/08/18 Subjective: No further abd pain today. Feeling better but had headache this morning Objective - Results Result Diagrams: 04/08/18 04:30 04/08/18 04:30 Recent Labs: Laboratory Last Values WBC 8.0 Th/cmm (4.8-10.8) 04/08/18 04:30 RBC 4.36 Mil/cmm (3.80-5.10) 04/08/18 04:30 Hgb 12.6 gm/dL (12-16) 04/08/18 04:30 Hct 37.0 % (41.0-60) L 04/08/18 04:30 MCV 84.8 fl (81-100) 04/08/18 04:30 MCH 28.9 pg (27.0-31.0) 04/08/18 04:30 MCHC Differential 34.1 pg (28.0-36.0) 04/08/18 04:30 RDW 13.3 % (11.5-20.0) 04/08/18 04:30 Plt Count 285 Th/cmm (150-400) 04/08/18 04:30 MPV 8.4 fl 04/08/18 04:30 Neutrophils % 63.7 % (40.0-80.0) 04/08/18 04:30 Lymphocytes % 28.4 % (20.0-50.0) 04/08/18 04:30 Monocytes % 3.4 % (2.0-10.0) 04/08/18 04:30 Eosinophils % 3.7 % (0.0-5.0) 04/08/18 04:30 Basophils % 0.8 % (0.0-2.0) 04/08/18 04:30 PT 9.6 SECONDS (9.5-11.5) 04/06/18 18:20 INR 0.92 (0.5-1.4) 04/06/18 18:20 Sodium 138 mEq/L (136-145) 04/08/18 04:30 Potassium 3.5 mEq/L (3.5-5.1) 04/08/18 04:30 Chloride 105 mEq/L (98-107) 04/08/18 04:30 Carbon Dioxide 24.7 mEq/L (21.0-31.0) 04/08/18 04:30 Anion Gap 11.8 (7.0-16.0) 04/08/18 04:30 BUN 10 mg/dL (7-25) 04/08/18 04:30 Creatinine 0.6 mg/dL (0.6-1.2) 04/08/18 04:30 Est GFR ( Amer) > 60.0 ml/min (>90) 04/08/18 04:30 Est GFR (Non-Af Amer) > 60.0 ml/min 04/08/18 04:30 BUN/Creatinine Ratio 16.7 04/08/18 04:30 Glucose 123 mg/dL (70-105) H 04/08/18 04:30 Calcium 8.7 mg/dL (8.6-10.3) 04/08/18 04:30 Total Bilirubin 0.8 mg/dL (0.3-1.0) 04/08/18 04:30 AST 53 U/L (13-39) H 04/08/18 04:30 ALT 83 U/L (7-52) H 04/08/18 04:30 Alkaline Phosphatase 85 U/L (34-104) 04/08/18 04:30 Creatine Kinase 93 U/L (30-223) 04/06/18 18:20 Troponin I < 0.01 ng/mL (0.01-0.05) L 04/06/18 18:20 B-Natriuretic Peptide < 5.0 pg/mL (5.0-100.0) L 04/06/18 18:20 Total Protein 6.5 gm/dL (6.0-8.3) 04/08/18 04:30 Albumin 3.6 gm/dL (3.7-5.3) L 04/08/18 04:30 Globulin 2.9 gm/dL 04/08/18 04:30 Albumin/Globulin Ratio 1.2 (1.0-1.8) 04/08/18 04:30 Triglycerides 219 mg/dL (<150) H 04/06/18 18:20 Cholesterol 178 mg/dL (<200) 04/06/18 18:20 LDL Cholesterol Direct 132 mg/dL (75-193) 04/06/18 18:20 HDL Cholesterol 30 mg/dL (23-92) 11/21/18 18:20 Amylase 45 U/L (29-103) 04/06/18 18:20 Lipase 36 U/L (11-82) 04/07/18 11:11 Serum , Qual NEGATIVE (NEGATIVE) 04/06/18 18:20 Urine Source RANDOM 04/06/18 17:53 Urine Color YELLOW 04/06/18 17:53 Urine Clarity CLEAR (CLEAR) 04/06/18 17:53 Urine pH 7.0 (4.6 - 8.0) 04/06/18 17:53 Ur Specific [place] 1.020 (1.005-1.030) 04/06/18 17:53 Urine Protein TRACE mg/dL (NEGATIVE) 04/06/18 17:53 Urine Glucose (UA) NEGATIVE mg/dL (NEGATIVE) 04/06/18 17:53 Urine Ketones NEGATIVE mg/dL (NEGATIVE) 04/06/18 17:53 Urine Blood NEGATIVE (NEGATIVE) 04/06/18 17:53 Urine Nitrate NEGATIVE (NEGATIVE) 04/06/18 17:53 Urine Bilirubin NEGATIVE (NEGATIVE) 04/06/18 17:53 Urine Urobilinogen 0.2 E.U./dL (0.2 - 1.0) 04/06/18 17:53 Ur Leukocyte Esterase NEGATIVE (NEGATIVE) 04/06/18 17:53 Urine RBC 0-2 /hpf (0-5) 04/06/18 17:53 Urine WBC 2-5 /hpf (0-5) 04/06/18 17:53 Ur Epithelial Cells FEW /lpf (FEW) 04/06/18 17:53 Urine Bacteria 1+ /hpf (NONE SEEN) H 04/06/18 17:53 - Physical Exam Vitals and I&O: Vital Signs Temp 97.2 F 04/08/18 08:13 Pulse 64 04/08/18 08:13 Resp 17 04/08/18 08:13 BP 122/69 04/08/18 08:13 Pulse Ox 95 04/08/18 08:13 Intake & Output 04/07/18 04/08/18 04/08/18 18:59 06:59 18:59 Intake Total 1100 1050 Balance 1100 1050 Intake: Intake, IV Amount 1100 1050 D5-0.45NS 1,000 ml @ 100 1000 1000 mls/hr IV .Q10H [facility] Rx#: [id number] Piperacillin Sodium/ 100 50 Tazobact 3.375 gm In Sodium Chloride 0.9% 50 ml @ 100 mls/hr IV Q6HR [facility] Rx#:[id number] Active Medications: Current Medications Dextrose/Sodium Chloride (D5-0.45ns) 1,000 mls @ 100 mls/hr IV .Q10H [facility] Stop: 06/05/18 22:37 Last Admin: 04/07/18 22:30 Dose: 100 mls/hr Piperacillin Sod/Tazobactam (Sod 3.375 gm/ Sodium Chloride) 50 mls @ 100 mls/ hr IV Q6HR [facility] Stop: 06/06/18 00:00 Last Admin: 04/08/18 05:28 Dose: 100 mls/hr Morphine Sulfate (Morphine) 2 mg IV Q4HR PRN PRN Reason: Abdominal Pain Stop: 06/05/18 23:57 Last Admin: 04/08/18 06:03 Dose: 2 mg Ondansetron HCl (Zofran) 4 mg IV Q6H PRN PRN Reason: Nausea / Vomiting Stop: 06/06/18 09:53 Last Admin: 04/07/18 20:20 Dose: 4 mg Pantoprazole Sodium (Protonix) 40 mg IVP DAILY [facility] Stop: 06/06/18 09:59 Last Admin: 04/07/18 11:02 Dose: 40 mg General: Alert, Oriented x3 HEENT: Atraumatic, PERRLA Neck: Supple Cardiovascular: Regular rate Lungs: Clear to auscultation Abdomen: Bowel sounds, Soft, no Tender, no Hepatomegaly, no Splenomegaly, no Distended, no Rebound Psych/Mental Status: Mental status NL - Procedures Procedures: Procedures Procedure Code Date BILAT TUBAL DIVISION NEC 66.32 09/22/06 DELIVERY 30361 03/25/04 DELIVERY ONLY 68330 09/22/06 DX PROC FETUS/AMNION NEC 75.35 02/17/04 DX ULTRASOUND-GRAV UTER 88.78 03/24/04 MONITORING NOS 75.34 09/13/06 NON-STRESS TEST 82027 09/13/06 LIGATE OVIDUCT(S) ADD-ON 91841 09/22/06 LOW CERVICAL 74.1 09/22/06 MATERNITY CARE PROCEDURE 80152 03/21/04 MEDICAL INDUCTION LABOR 73.4 03/25/04 OB US LIMITED FETUS(S) 61403 03/24/04 Assessment/Plan - Assessment Assessment: # RLQ abd pain, resolved # Head ache CT scan showed fluid filled appendix, but no inflammation. Dr Ly had considered early appendicitis, but pt's resolution of symptoms leads away from any ongoing process. An US has been performed as well, pending result Plan: - will not likely require surgery given resolution of her symptoms - start diet, advance as tolerated - f/u US - supportive measures Stable from GI perspective, GI to see as needed, please call with any questions
--- NOTE | 2018-04-08 08:39 | Diagnostic Imaging Report ---
Head CT without intravenous contrast Indication: Headache Comparison: None Technique: Axial images were obtained from the vertex to the skull base without IV contrast. Coronal reconstructions were made. Total DLP: 639, CTDI35 FINDINGS: Images of the brain obtained without contrast demonstrate no acute hemorrhage. No mass lesions identified. The ventricles and basal cisterns are patent. The urena-white matter differentiation is preserved. There is no mass effect or midline shift. No skull fractures identified. No soft tissue swelling. The paranasal sinuses are clear. IMPRESSION: No acute intracranial abnormality.
--- NOTE | 2018-04-08 08:47 | Diagnostic Imaging Report ---
Exam: Ultrasound summation of the abdomen. HISTORY: Abdominal pain. Prior exam: None Findings: Real-time ultrasound examination the abdomen performed multiple planes. The study demonstrates mild fatty infiltration liver parenchyma. The gallbladder free of calculi. The common bile duct measures 3 mm. The pancreas poorly seen. There is no evidence of obstructive uropathy or nephrolithiasis. The spleen is intact. No free fluid is noted in the abdomen. The findings were correlated with the prior examination CT of the abdomen on 04/06/2018. IMPRESSION: Essentially unremarkable exam of the abdomen.
--- NOTE | 2018-04-08 10:15 | General Progress Note ---
Subjective - Review of Systems Events since last encounter: 04/09/18 US noted denies pain, had BM yesterday, on full liquids if CBC today normal, may DC Objective - Results Result Diagrams: 04/08/18 04:30 04/08/18 04:30 Recent Labs: Laboratory Last Values WBC 8.0 Th/cmm (4.8-10.8) 04/08/18 04:30 RBC 4.36 Mil/cmm (3.80-5.10) 04/08/18 04:30 Hgb 12.6 gm/dL (12-16) 04/08/18 04:30 Hct 37.0 % (41.0-60) L 04/08/18 04:30 MCV 84.8 fl (81-100) 04/08/18 04:30 MCH 28.9 pg (27.0-31.0) 04/08/18 04:30 MCHC Differential 34.1 pg (28.0-36.0) 04/08/18 04:30 RDW 13.3 % (11.5-20.0) 04/08/18 04:30 Plt Count 285 Th/cmm (150-400) 04/08/18 04:30 MPV 8.4 fl 04/08/18 04:30 Neutrophils % 63.7 % (40.0-80.0) 04/08/18 04:30 Lymphocytes % 28.4 % (20.0-50.0) 04/08/18 04:30 Monocytes % 3.4 % (2.0-10.0) 04/08/18 04:30 Eosinophils % 3.7 % (0.0-5.0) 04/08/18 04:30 Basophils % 0.8 % (0.0-2.0) 04/08/18 04:30 PT 9.6 SECONDS (9.5-11.5) 04/06/18 18:20 INR 0.92 (0.5-1.4) 04/06/18 18:20 Sodium 138 mEq/L (136-145) 04/08/18 04:30 Potassium 3.5 mEq/L (3.5-5.1) 04/08/18 04:30 Chloride 105 mEq/L (98-107) 04/08/18 04:30 Carbon Dioxide 24.7 mEq/L (21.0-31.0) 04/08/18 04:30 Anion Gap 11.8 (7.0-16.0) 04/08/18 04:30 BUN 10 mg/dL (7-25) 04/08/18 04:30 Creatinine 0.6 mg/dL (0.6-1.2) 04/08/18 04:30 Est GFR ( Amer) > 60.0 ml/min (>90) 04/08/18 04:30 Est GFR (Non-Af Amer) > 60.0 ml/min 04/08/18 04:30 BUN/Creatinine Ratio 16.7 04/08/18 04:30 Glucose 123 mg/dL (70-105) H 04/08/18 04:30 Calcium 8.7 mg/dL (8.6-10.3) 04/08/18 04:30 Total Bilirubin 0.8 mg/dL (0.3-1.0) 04/08/18 04:30 AST 53 U/L (13-39) H 04/08/18 04:30 ALT 83 U/L (7-52) H 04/08/18 04:30 Alkaline Phosphatase 85 U/L (34-104) 04/08/18 04:30 Creatine Kinase 93 U/L (30-223) 04/06/18 18:20 Troponin I < 0.01 ng/mL (0.01-0.05) L 04/06/18 18:20 B-Natriuretic Peptide < 5.0 pg/mL (5.0-100.0) L 04/06/18 18:20 Total Protein 6.5 gm/dL (6.0-8.3) 04/08/18 04:30 Albumin 3.6 gm/dL (3.7-5.3) L 04/08/18 04:30 Globulin 2.9 gm/dL 04/08/18 04:30 Albumin/Globulin Ratio 1.2 (1.0-1.8) 04/08/18 04:30 Triglycerides 219 mg/dL (<150) H 04/06/18 18:20 Cholesterol 178 mg/dL (<200) 04/06/18 18:20 LDL Cholesterol Direct 132 mg/dL (75-193) 04/06/18 18:20 HDL Cholesterol 30 mg/dL (23-92) 04/06/18 18:20 Amylase 45 U/L (29-103) 04/06/18 18:20 Lipase 36 U/L (11-82) 04/07/18 11:11 Serum , Qual NEGATIVE (NEGATIVE) 04/06/18 18:20 Urine Source RANDOM 04/06/18 17:53 Urine Color YELLOW 04/06/18 17:53 Urine Clarity CLEAR (CLEAR) 04/06/18 17:53 Urine pH 7.0 (4.6 - 8.0) 04/06/18 17:53 Ur Specific [place] 1.020 (1.005-1.030) 04/06/18 17:53 Urine Protein TRACE mg/dL (NEGATIVE) 04/06/18 17:53 Urine Glucose (UA) NEGATIVE mg/dL (NEGATIVE) 04/06/18 17:53 Urine Ketones NEGATIVE mg/dL (NEGATIVE) 04/06/18 17:53 Urine Blood NEGATIVE (NEGATIVE) 04/06/18 17:53 Urine Nitrate NEGATIVE (NEGATIVE) 04/06/18 17:53 Urine Bilirubin NEGATIVE (NEGATIVE) 04/06/18 17:53 Urine Urobilinogen 0.2 E.U./dL (0.2 - 1.0) 04/06/18 17:53 Ur Leukocyte Esterase NEGATIVE (NEGATIVE) 04/06/18 17:53 Urine RBC 0-2 /hpf (0-5) 04/06/18 17:53 Urine WBC 2-5 /hpf (0-5) 04/06/18 17:53 Ur Epithelial Cells FEW /lpf (FEW) 04/06/18 17:53 Urine Bacteria 1+ /hpf (NONE SEEN) H 04/06/18 17:53 - Physical Exam Vitals and I&O: Vital Signs Temp 97.2 F 04/08/18 08:13 Pulse 64 04/08/18 08:13 Resp 17 04/08/18 08:13 BP 122/69 04/08/18 08:13 Pulse Ox 95 04/08/18 08:13 Intake & Output 04/07/18 04/08/18 04/08/18 18:59 06:59 18:59 Intake Total 1100 1050 50 Balance 1100 1050 50 Intake: Intake, IV Amount 1100 1050 50 D5-0.45NS 1,000 ml @ 100 1000 1000 mls/hr IV .Q10H [facility] Rx#: [id number] Piperacillin Sodium/ 100 50 50 Tazobact 3.375 gm In Sodium Chloride 0.9% 50 ml @ 100 mls/hr IV Q6HR [facility] Rx#:[id number] Active Medications: Current Medications Dextrose/Sodium Chloride (D5-0.45ns) 1,000 mls @ 100 mls/hr IV .Q10H [facility] Stop: 06/05/18 22:37 Last Admin: 04/07/18 22:30 Dose: 100 mls/hr Piperacillin Sod/Tazobactam (Sod 3.375 gm/ Sodium Chloride) 50 mls @ 100 mls/ hr IV Q6HR [facility] Stop: 06/06/18 00:00 Last Infusion: 04/08/18 09:15 Dose: Infused Morphine Sulfate (Morphine) 2 mg IV Q4HR PRN PRN Reason: Abdominal Pain Stop: 06/05/18 23:57 Last Admin: 04/08/18 06:03 Dose: 2 mg Ondansetron HCl (Zofran) 4 mg IV Q6H PRN PRN Reason: Nausea / Vomiting Stop: 06/06/18 09:53 Last Admin: 04/07/18 20:20 Dose: 4 mg Pantoprazole Sodium (Protonix) 40 mg IVP DAILY [facility] Stop: 06/06/18 09:59 Last Admin: 04/08/18 09:44 Dose: 40 mg General: Alert, Oriented x3 HEENT: Atraumatic, PERRLA Neck: Supple Cardiovascular: Regular rate Lungs: Clear to auscultation Abdomen: Bowel sounds, Soft, no Tender, no Hepatomegaly, no Splenomegaly, no Distended, no Rebound Psych/Mental Status: Mental status NL - Procedures Procedures: Procedures Procedure Code Date BILAT TUBAL DIVISION NEC 66.32 09/22/06 DELIVERY 72797 03/25/04 DELIVERY ONLY 37530 09/22/06 DX PROC FETUS/AMNION NEC 75.35 02/17/04 DX ULTRASOUND-GRAV UTER 88.78 03/24/04 MONITORING NOS 75.34 09/13/06 NON-STRESS TEST 25795 09/13/06 LIGATE OVIDUCT(S) ADD-ON 01442 09/22/06 LOW CERVICAL 74.1 09/22/06 MATERNITY CARE PROCEDURE 64794 03/21/04 MEDICAL INDUCTION LABOR 73.4 11/09/04 OB US LIMITED FETUS(S) 93038 03/24/04
[2018-04-08] MEDS: D5-0.45NS 1,000 ML IV SCH (10:56)
--- NOTE | 2018-04-08 15:29 | Discharge Summary ---
DATE OF DISCHARGE: 04/08/2018 DATE OF DISCHARGE: 04/08/2018. PRINCIPAL DIAGNOSES: 1. Right lower quadrant abdominal pain, resolved. Etiology most likely secondary to enteritis. 2. Abnormal liver function test secondary to fatty liver. 3. Possible gastritis. 4. Headache, migraine in origin. 5. Obesity. BRIEF STATEMENT FOR THE REASON FOR ADMISSION: A 37-year-old female presented to Emergency Room for acute onset of right lower quadrant abdominal pain. The patient was evaluated and subsequently admitted to the hospital for further treatment. Please refer to my H and P for further information. HOSPITAL COURSE: The patient was admitted to medical floor. The patient was kept n.p.o., IV fluid, IV antibiotics were given. GI and General Surgery consultation was requested. Symptomatic therapy was given as well. The patient went for abdominal ultrasound, which was negative for cholelithiasis or any sign of appendicitis. The patient's abdominal pain resolved. The patient was followed by bi consultant and recommended that the patient should be placed on p.o. diet and the patient can be discharged home. The patient was also noted to have acute onset of headache, which required CT scan of the head, which also resolved as well. It was noted that the patient has a migraine component of headache. The patient has been discharged to home in stable condition with prescription for Levaquin for 7 days along with Prilosec 20 mg to be continued in the morning for possible gastritis. If recurrent symptoms, the patient is advised to go to Emergency Room. [facility]# [id number]
--- NOTE | 2018-04-08 15:40 | Progress Notes ---
DATE: 04/08/2018 SUBJECTIVE: The patient seen and examined. The patient is lying in the bed. 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 CT scan of the head was unremarkable, seen by surgeon and GI and cleared by both. The patient does not need any surgical intervention, needs to have outpatient followup for liver function. The patient is noted to have fatty liver. The patient's abdominal symptoms are resolved. PHYSICAL EXAMINATION: VITAL SIGNS: See nurse's note. HEENT: No facial asymmetry. NECK: Supple, no JVD. HEART: Regular, no murmur. CHEST: Lung equal in expansion, no expiratory wheezing. ABDOMEN: Soft. EXTREMITIES: No edema. NEUROLOGIC: Nonfocal. CLINICAL IMPRESSION: 1. Abdominal pain with fluid filled appendix resolved. GI symptoms noted. Possibilities of having abdominal pain, probably secondary to gastritis and enteritis. 2. Abnormal liver function tests secondary to fatty liver. 3. Headache, most likely migraine. 4. Obesity. PLAN: Discharge the patient to home with Levaquin and Prilosec. The patient is informed that the patient should come back to Emergency Room if recurrent symptoms. Discharge instructions discussed with the patient and her . JOB# [id number]
== END 2018-04-08 16:00 | disposition home or self-care (01) | DRG 249 ==
LOC: ER 17:04 → MSI 22:30
PROVIDERS: ADMIT Internal Medicine; ATTEND Internal Medicine
DX: K52.9 Noninfective gastroenteritis and colitis, unspecified (principal); Z68.41 Body mass index [BMI] 40.0-44.9, adult; K76.0 Fatty (change of) liver, not elsewhere classified; N39.0 Urinary tract infection, site not specified; E66.9 Obesity, unspecified; K29.70 Gastritis, unspecified, without bleeding; G43.909 Migraine, unspecified, not intractable, without status migrainosus
CPT/HCPCS: 36415-UA; 70450-TC; 76700-TC; 80053-TC; 80061-TC; 81001-TC; 82150-TC; 82550-TC; 83690-TC; 83880-TC; 84484-TC; 84703-TC; 85025-TC; 85610-TC; 87086-90; 93005; 96375; C9113; J0696; J1885; J2270; J2405; J2543; J7030

== ENCOUNTER 2018-06-02 05:00 | Emergency (ER) | payer MEDICAID ==
[2018-06-02] MEDS ORDERED: Morphine Sulfate 2 mg/mL 1mL Syr IVP ONE (05:32)
[2018-06-02] MEDS ORDERED: Sodium Chloride 0.9% 1,000 ML IV ONE (05:32)
--- NOTE | 2018-06-02 05:37 | ED Physician Chart ---
ED Chief Complaint/HPI - Patient Information Date Seen:: 06/02/18 Time Seen:: 05:15 Chief Complaint:: Abdominal Pain History of Present Illness:: onset x 3 hours of intermittent, LLQ Abdominal Pain, E/As, fever, Left Flank Pain, LBP, and Left Groin/Inguinal Pain; pt denies trauma, H/As, S/T, neck pain , cough, C/P, SOB, A/N/V/D/C, chills, or urinary s/s Allergies:: Allergies Allergy/AdvReac Type Severity Reaction Status Date / Time No Known Allergies Allergy Verified 04/06/18 18:03 Vitals:: Vital Signs - 8 hr 06/02/18 05:16 Temp 99.2 F HR 65 RR 20 BP 129/68 O2 Sat % 97 Historian:: Patient, Family Member Review:: Nurse's Note Reviewed <Sai Cheema - Last Filed: 06/02/18 06:49> - Patient Information Allergies:: Allergies Allergy/AdvReac Type Severity Reaction Status Date / Time No Known Allergies Allergy Verified 04/06/18 18:03 Vitals:: Vital Signs - 8 hr 06/02/18 06/02/18 05:16 06:35 Temp 99.2 F 99.2 F HR 65 64 RR 20 18 BP 129/68 120/70 O2 Sat % 97 97 <Ham Murray - Last Filed: 06/02/18 09:39> ED Review of Systems - Review of Systems General/Constitutional: Fever, No chills, No weight loss, No weakness, No diaphoresis, No edema, No loss of appetite Skin: No skin lesions, No rash, No bruising Head: No headache, No light-headedness Eyes: No loss of vision, No pain, No diplopia ENT: No earache, No nasal drainage, No sore throat, No tinnitus Neck: No neck pain, No swelling, No thyromegaly, No stiffness, No mass noted Cardio Vascular: No chest pain, No palpitations, No PND, No orthopnea, No edema Pulmonary: No SOB, No cough, No sputum, No wheezing GI: No nausea, No vomiting, No diarrhea, Pain, No melena, No hematochezia, No constipation, No hematemesis G/U: No dysuria, No frequency, No hematuria, No nacturia 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, No abnormal vaginal bleed, No contraction Musculoskeletal: No bone or joint pain, Back pain, No muscle pain Endocrine: No polyuria, No polydipsia Psychiatric: No prior psych history, No depression, No anxiety, No suicidal ideation, No homicidal ideation, No auditory hallucination, No visual hallucination Hematopoietic: No bruising, No lymphadenopathy Allergic/Immuno: No urticaria, No angioedema Neurological: No syncope, No focal symptoms, No weakness, No paresthesia, No headache, No seizure, No dizziness, No confusion, No vertigo <Sai Cheema Last Filed: 06/02/18 06:49> ED Past Medical History - Past Medical History Obtainable: Yes Past Medical History: PUD/GERD, Other (Gynecomastia) Family History: None Social History: Non Smoker, No Alcohol, No Drug Use, Surgical History: Psychiatricy History: None Medication: Reviewed <Sai Cheema [facility] Filed: 06/02/18 06:49> Family Medical History - Family Member Mother History Unknown: Yes Ethnicity: Living Status: Unknown Hx Family Cancer: (UNKNOWN) Hx Family Coronary Artery Disease: (UNKNOWN) Hx Family Congestive Heart Failure: (UNKNOWN) Hx Family Hypertension: (UNKNOWN) Hx Family Stroke: (UNKNOWN) Hx Family Diabetes: (UNKNOWN) Hx Family Seizures: (UNKNOWN) Hx Family Dementia: (UNKNOWN) Hx Family AIDS: (UNKNOWN) Hx Family COPD: (UNKNOWN) Hx Family Hepatitis: (UNKNOWN) Hx Family Psychiatric Problems: (UNKNOWN) Hx Family Tuberculosis: (UNKNOWN) <Sai Cheema [facility] Filed: 06/02/18 06:49> ED Physical Exam - Physical Examination General/Constitutional: Awake, Well-developed, well-nourished, Alert, No distress, GCS 15, Non-toxic appearing, Ambulatory Head: Atraumatic Eyes: Lids, conjuctiva normal, PERRL, EOMI Skin: Nl inspection, No rash, No skin lesions, No ecchymosis, Well hydrated, No lymphadenopathy ENMT: External ears, nose nl, Nasal exam nl, Lips, teeth, gums nl, Oropharynx nl , Tonsils nl Other ENMT comments:: Ears: TMs: dull and injected; L>R Neck: Nontender, Full ROM w/o pain, No JVD, No nuchal rigidity, No bruit, No mass, No stridor Respiratory: Nl effort/Exclusion, Clear to Auscultation, No Wheeze/Rhonchi/Rales Cardio Vascular: RRR, No murmur, gallop, rubs, NL S1 S2, Carotid/Femoral/Distal pulses equal bilaterally GI: No tenderness/rebounding/guarding, No organomegaly, No hernia, Normal BS's, Nondistended, No mass/bruits, No McBurney tenderness : No CVA tenderness Extremities: No tenderness or effusion, Full ROM, normal strength in all extremities, No edema, Normal digits & nails Neuro/Psych: Alert/oriented, DTR's symmetric, Normal sensory exam, Normal motor strength, Judgement/insight normal, Mood normal, Normal gait, No focal deficits Misc: Normal back, No paraspinal tenderness <Sai Cheema - Last Filed: 06/02/18 06:49> ED Labs/Radiology/EKG Results - Lab Results Comments:: Reviewed - EKG Interpretations EKG Time:: 05:42 Rate & Rhythm: 60; NSR Comments:: LAE; non-specific st-t changes <Sai Cheema - Last Filed: 06/02/18 06:49> - Lab Results Results: Laboratory Tests 06/02/18 06/02/18 06/02/18 05:56 05:56 05:56 WBC 8.5 RBC 4.55 Hgb 13.0 Hct 38.3 L MCV 84.1 MCH 28.5 MCHC Differential 33.9 RDW 13.1 Plt Count 267 MPV 8.7 Neutrophils % 61.0 Lymphocytes % 32.0 Monocytes % 3.2 Eosinophils % 2.9 Basophils % 0.9 PT 9.5 INR 0.91 Sodium 139 Potassium 3.7 Chloride 107 Carbon Dioxide 23.6 Anion Gap 12.1 BUN 9 Creatinine 0.5 L Est GFR ( Amer) > 60.0 Est GFR (Non-Af Amer) > 60.0 BUN/Creatinine Ratio 18.0 Glucose 110 H Calcium 9.2 Total Bilirubin 0.4 AST 47 H ALT 78 H Alkaline Phosphatase 88 Creatine Kinase 67 Troponin I B-Natriuretic Peptide Total Protein 7.1 Albumin 3.8 Globulin 3.3 Albumin/Globulin Ratio 1.2 Triglycerides 113 Cholesterol 165 LDL Cholesterol Direct 127 HDL Cholesterol 29 Amylase Lipase Serum , Qual 06/02/18 06/02/18 06/02/18 05:56 05:56 05:56 WBC RBC Hgb Hct MCV MCH MCHC Differential RDW Plt Count MPV Neutrophils % Lymphocytes % Monocytes % Eosinophils % Basophils % PT INR Sodium Potassium Chloride Carbon Dioxide Anion Gap BUN Creatinine Est GFR ( Amer) Est GFR (Non-Af Amer) BUN/Creatinine Ratio Glucose Calcium Total Bilirubin AST ALT Alkaline Phosphatase Creatine Kinase Troponin I 0.01 B-Natriuretic Peptide < 5.0 L Total Protein Albumin Globulin Albumin/Globulin Ratio Triglycerides Cholesterol LDL Cholesterol Direct HDL Cholesterol Amylase 41 Lipase 30 Serum , Qual 06/02/18 05:56 WBC RBC Hgb Hct MCV MCH MCHC Differential RDW Plt Count MPV Neutrophils % Lymphocytes % Monocytes % Eosinophils % Basophils % PT INR Sodium Potassium Chloride Carbon Dioxide Anion Gap BUN Creatinine Est GFR ( Amer) Est GFR (Non-Af Amer) BUN/Creatinine Ratio Glucose Calcium Total Bilirubin AST ALT Alkaline Phosphatase Creatine Kinase Troponin I B-Natriuretic Peptide Total Protein Albumin Globulin Albumin/Globulin Ratio Triglycerides Cholesterol LDL Cholesterol Direct HDL Cholesterol Amylase Lipase Serum , Qual NEGATIVE - Radiology Results Results: Ultrasound showed a right ovarian cyst measuring 3.4 x 2.5 x 3.2 cm; left ovary looks normal; x-ray left hip normal Abnormal Lab Results 06/02/18 06/02/18 06/02/18 05:27 05:56 05:56 WBC 8.5 RBC 4.55 Hgb 13.0 Hct 38.3 L MCV 84.1 MCH 28.5 MCHC Differential 33.9 RDW 13.1 Plt Count 267 MPV 8.7 Neutrophils % 61.0 Lymphocytes % 32.0 Monocytes % 3.2 Eosinophils % 2.9 Basophils % 0.9 PT 9.5 INR 0.91 Sodium Potassium Chloride Carbon Dioxide Anion Gap BUN Creatinine Est GFR ( Amer) Est GFR (Non-Af Amer) BUN/Creatinine Ratio Glucose Calcium Total Bilirubin AST ALT Alkaline Phosphatase Creatine Kinase Troponin I B-Natriuretic Peptide Total Protein Albumin Globulin Albumin/Globulin Ratio Triglycerides Cholesterol LDL Cholesterol Direct HDL Cholesterol Amylase Lipase Serum , Qual Urine Source CLEAN C Urine Color YELLOW Urine Clarity CLEAR Urine pH 6.0 Ur Specific [place] 1.025 Urine Protein TRACE Urine Glucose (UA) NEGATIVE Urine Ketones NEGATIVE Urine Blood NEGATIVE Urine Nitrate NEGATIVE Urine Bilirubin NEGATIVE Urine Urobilinogen 0.2 Ur Leukocyte Esterase NEGATIVE Urine RBC NONE SEEN Urine WBC 0-2 Ur Epithelial Cells MODERATE Urine Bacteria FEW Urine Mucus MODERATE 06/02/18 06/02/18 06/02/18 05:56 05:56 05:56 WBC RBC Hgb Hct MCV MCH MCHC Differential RDW Plt Count MPV Neutrophils % Lymphocytes % Monocytes % Eosinophils % Basophils % PT INR Sodium 139 Potassium 3.7 Chloride 107 Carbon Dioxide 23.6 Anion Gap 12.1 BUN 9 Creatinine 0.5 L Est GFR ( Amer) > 60.0 Est GFR (Non-Af Amer) > 60.0 BUN/Creatinine Ratio 18.0 Glucose 110 H Calcium 9.2 Total Bilirubin 0.4 AST 47 H ALT 78 H Alkaline Phosphatase 88 Creatine Kinase 67 Troponin I 0.01 B-Natriuretic Peptide < 5.0 L Total Protein 7.1 Albumin 3.8 Globulin 3.3 Albumin/Globulin Ratio 1.2 Triglycerides 113 Cholesterol 165 LDL Cholesterol Direct 127 HDL Cholesterol 29 Amylase Lipase Serum , Qual Urine Source Urine Color Urine Clarity Urine pH Ur Specific [place] Urine Protein Urine Glucose (UA) Urine Ketones Urine Blood Urine Nitrate Urine Bilirubin Urine Urobilinogen Ur Leukocyte Esterase Urine RBC Urine WBC Ur Epithelial Cells Urine Bacteria Urine Mucus 06/02/18 06/02/18 05:56 05:56 WBC RBC Hgb Hct MCV MCH MCHC Differential RDW Plt Count MPV Neutrophils % Lymphocytes % Monocytes % Eosinophils % Basophils % PT INR Sodium Potassium Chloride Carbon Dioxide Anion Gap BUN Creatinine Est GFR ( Amer) Est GFR (Non-Af Amer) BUN/Creatinine Ratio Glucose Calcium Total Bilirubin AST ALT Alkaline Phosphatase Creatine Kinase Troponin I B-Natriuretic Peptide Total Protein Albumin Globulin Albumin/Globulin Ratio Triglycerides Cholesterol LDL Cholesterol Direct HDL Cholesterol Amylase 41 Lipase 30 Serum , Qual NEGATIVE Urine Source Urine Color Urine Clarity Urine pH Ur Specific [place] Urine Protein Urine Glucose (UA) Urine Ketones Urine Blood Urine Nitrate Urine Bilirubin Urine Urobilinogen Ur Leukocyte Esterase Urine RBC Urine WBC Ur Epithelial Cells Urine Bacteria Urine Mucus <Ham Murray - Last Filed: 06/02/18 09:39> ED Assessment - Assessment General Assessment: Patient awoke yesterday morning with left groin pain which radiates to the proximal anterior left thigh. No trauma. No history of left groin and left hip pain. Last night noted left ear pain. Past medical history: No chronic medical problems. Patient has 2 children. Physical examination patient well- developed well-nourished no acute distress. Eyes ears nose and throat normal except for movement of tragus left ear causes pain. Heart regular rhythm no murmur or extra sound. Abdomen bowel sounds present abdomen is soft there is one out of 4 left lower quadrant tenderness. Bimanual pelvic exam reveals one out of 4 left adnexal tenderness; uterus is not enlarged to palpation; cervix is closed. Flexion abduction external rotation left hip causes mild pain proximal anterior left thigh. 0932: Patient's pain is 5 on a scale 1-10. X- ray left hip normal and pelvic ultrasound showed no left adnexal pathology. Patient may have diverticulitis since she does have mild left lower quadrant tenderness and so will receive Cipro 500 mg orally in the emergency department before discharge and receive a prescription for Cipro 500 mg twice a day for 10 days. For her left otitis externa patient to receive a prescription for Cortisporin otic to apply 3 drops 4 times a day left ear; oral instructions given on how to apply correctly. <Ham Murray - Last Filed: 06/02/18 09:39> ED Septic Shock - <6hrs of presentation: Vital Signs: Vital Signs - 8 hr 06/02/18 05:16 Temp 99.2 F HR 65 RR 20 BP 129/68 O2 Sat % 97 <Sai Cheema - Last Filed: 06/02/18 06:49> - . Is Septic Shock (SBP<90, OR Lactate>4 mmol\L) present?: No - <6hrs of presentation: Vital Signs: Vital Signs - 8 hr 06/02/18 06/02/18 05:16 06:35 Temp 99.2 F 99.2 F HR 65 64 RR 20 18 BP 129/68 120/70 O2 Sat % 97 97 <Ham Murray - Last Filed: 06/02/18 09:39> ED Reassessment (Disposition) - Reassessment Reassessment Condition:: Improved - Diagnosis Diagnosis:: Diverticulitis; otitis externa left ear - Aftercare/Follow up Instructions Medication Prescribed:: See above - Patient Disposition Discharge/Transfer:: Home Condition at Disposition:: Stable, Improved <Ham Murray - Last Filed: 06/02/18 09:39>
[2018-06-02] MEDS ORDERED: Morphine Sulfate 2 mg/mL 1mL Syr ONE (05:46)
[2018-06-02 06:24] LABS: % BASOPHILS 0.9 % (0.0-2.0); % EOSINOPHILS 2.9 % (0.0-5.0); % MONOCYTES 3.2 % (2.0-10.0); BASOPHILE ABSOLUTE 0.1 Th/cumm (0-0.2); EOSINOPHILE ABSOLUTE 0.2 Th/cmm (0.1-0.4); HEMATOCRIT 38.3 % (41.0-60); LYMPHOCYTE ABSOLUTE 2.7 Th/cmm (1.5-3.0); MEAN CELL VOLUME 84.1 fl (81-100); MEAN CORPUSCULAR HEMOGLOBIN 28.5 pg (27.0-31.0); MEAN CORPUSCULAR HGB CONC 33.9 pg (28.0-36.0); MEAN PLATELET VOLUME 8.7 fl; MONOCYTE ABSOLUTE 0.3 Th/cmm (0.3-1.0); NEUTROPHILE ABSOLUTE 5.2 Th/cmm (1.8-8.0); PLATELET COUNT 267 Th/cmm (150-400); RED BLOOD COUNT 4.55 Mil/cmm (3.80-5.10); RED CELL DISTRIBUTION WIDTH 13.1 % (11.5-20.0); WHITE BLOOD COUNT 8.5 Th/cmm (4.8-10.8)
[2018-06-02 06:31] LABS: INR 0.91 (0.5-1.4); PROTHROMBIN TIME (TEST) 9.5 SECONDS (9.5-11.5)
[2018-06-02 06:38] LABS: ALB/GLOB RATIO 1.2 (1.0-1.8); ALBUMIN 3.8 gm/dL (3.7-5.3); ALKALINE PHOSPHATASE 88 U/L (34-104); ANION GAP 12.1 (7.0-16.0); BILIRUBIN,TOTAL 0.4 mg/dL (0.3-1.0); BUN - UREA NITROGEN 9 mg/dL (7-25); CALCIUM SERUM 9.2 mg/dL (8.6-10.3); CARBON DIOXIDE 23.6 mEq/L (21.0-31.0); CHLORIDE 107 mEq/L (98-107); CHOLESTEROL 165 mg/dL (<200); CREATININE - SERUM 0.5 mg/dL (0.6-1.2); CREATININE KINASE 67 U/L (30-223); GFR AFRICAN-AMERICAN > 60.0 ml/min (>90); GFR NON AFRICAN-AMERICAN > 60.0 ml/min; GLUCOSE 110 mg/dL (70-105); HDL -HIGH DENSITY LIPOPROTEIN 29 mg/dL (23-92); POTASSIUM SERUM 3.7 mEq/L (3.5-5.1); SGOT 47 U/L (13-39); SGPT/ALT 78 U/L (7-52); SODIUM SERUM 139 mEq/L (136-145); TOTAL PROTEIN,SERUM 7.1 gm/dL (6.0-8.3); TRIGLYCERIDES 113 mg/dL (<150)
[2018-06-02] MEDS ORDERED: cefTRIAXone 1 GM in Sodium Chloride 0.9% 50 ML IV ONE (06:47)
[2018-06-02 06:56] LABS: AMYLASE SERUM 41 U/L (29-103); LIPASE 30 U/L (11-82)
[2018-06-02 07:33] LABS: URINE SOURCE CLEAN C
[2018-06-02 07:40] LABS: URINE BILIRUBIN NEGATIVE (NEGATIVE); URINE BLOOD NEGATIVE (NEGATIVE); URINE GLUCOSE (UA) NEGATIVE (NEGATIVE); URINE KETONE NEGATIVE (NEGATIVE); URINE LEUKOCYTE ESTERASE NEGATIVE (NEGATIVE); URINE MICROSCOPIC INDICATED? YES; URINE NITRATE NEGATIVE (NEGATIVE); URINE PROTEIN TRACE mg/dL (NEGATIVE); URINE UROBILINOGEN 0.2 E.U./dL (0.2 - 1.0)
[2018-06-02 07:44] LABS: URINE CLARITY CLEAR (CLEAR); URINE COLOR YELLOW
[2018-06-02 07:49] LABS: URINE EPITHELIAL CELLS MODERATE /lpf (FEW); URINE RBC NONE SEEN /hpf (0-5); URINE WBC 0-2 /hpf (0-5)
[2018-06-02 07:50] LABS: URINE BACTERIA FEW /hpf (NONE SEEN)
--- NOTE | 2018-06-02 10:08 | Diagnostic Imaging Report ---
Left hip (2 views) HISTORY: Pain Joint space is normal. The femoral head exhibits a normal contour. No focal lesions. No fractures. IMPRESSION: No acute abnormalities
--- NOTE | 2018-06-02 10:14 | Diagnostic Imaging Report ---
Pelvic ultrasound HISTORY: Pain There is a normal uterine size (7.9 x 4.5 x 6.7 cm). No focal myometrial lesions are seen. The endometrium measures 6 mm thickness. The right ovary is mildly enlarged (4.6 x 3.7 x 3.8 cm). This is associated with a 3.3 cm cyst. The left ovary measures 3.4 x 2.0 x 2.5 cm. No abnormal masses. No free fluid in pelvis. IMPRESSION: 1. Mild right ovarian enlargement associated with a 3.3 cm cyst. If necessary, a follow-up ultrasound exam would provide assessment of a physiologic basis.
== END 2018-06-02 10:15 | disposition home or self-care (01) ==
LOC: ER 05:00
DX: K57.92 Diverticulitis of intestine, part unspecified, without perforation or abscess without bleeding (principal); H60.92 Unspecified otitis externa, left ear; K21.9 Gastro-esophageal reflux disease without esophagitis; Z98.890 Other specified postprocedural states
CPT/HCPCS: 99284; 96374; 96375; 93005; 73502; 76856; 84484; 83880; 36415; 85025; 85610; 81001; 82150; 82550; 84703; 83690; 80053; 80061; J2270; J1885; J2405; 73501; J0696; J7030; Z7502; Z7610